=== PATIENT | male | born 1950 | race African-American/Black ===

== ENCOUNTER 2017-08-05 09:42 | Emergency (ER) | payer MEDICARE, OTHER ==
[~2017-08-05] VITALS: Ht 182.9 cm; Wt 95.5 kg
[~2017-08-05 09:42] MED LIST: AMLO-511 PO; ASPI81TA33 PO; ATOR20TA65 PO; HYDR25TA PO; LISI10TA7 PO
[2017-08-05 10:04] VITALS: BP 133/92
== END 2017-08-05 11:07 | disposition home or self-care (01) ==
LOC: EMS 09:44
DX: L50.9 Urticaria, unspecified (principal); E78.00 Pure hypercholesterolemia, unspecified; I10 Essential (primary) hypertension; Z79.82 Long term (current) use of aspirin; Z87.891 Personal history of nicotine dependence
CPT/HCPCS: 99283

== ENCOUNTER 2017-12-29 11:52 | Emergency (ER) | payer MEDICARE, OTHER ==
[~2017-12-29] VITALS: Ht 182.9 cm; Wt 93.2 kg
[~2017-12-29 11:52] MED LIST changes: -ASPI81TA33 PO; +ASPI81TA87 PO
[2017-12-29 11:58] VITALS: BP 133/92
== END 2017-12-29 12:48 | disposition left against medical advice (07) ==
LOC: EMS 11:58
DX: Z53.21 Procedure and treatment not carried out due to patient leaving prior to being seen by health care provider (principal)

== ENCOUNTER 2017-12-30 10:50 | Emergency (ER) | payer MEDICARE, OTHER | END 2017-12-30 12:09 | disposition left against medical advice (07) | LOC: EMS 10:54 | DX: R05 Cough (principal); Z53.21 Procedure and treatment not carried out due to patient leaving prior to being seen by health care provider ==

== ENCOUNTER 2018-12-11 07:46 | Emergency (ER) | payer MEDICARE, OTHER ==
[~2018-12-11] VITALS: Ht 182.9 cm; Wt 93.2 kg
[2018-12-11] MEDS ORDERED: BENZONATATE 100 MG CAPSULE PO ONE (09:45)
[2018-12-11 10:08] VITALS: BP 146/106
== END 2018-12-11 10:18 | disposition home or self-care (01) ==
LOC: EMS 07:49
DX: R05 Cough (principal); E78.00 Pure hypercholesterolemia, unspecified; I10 Essential (primary) hypertension; F17.210 Nicotine dependence, cigarettes, uncomplicated; Z79.899 Other long term (current) drug therapy; Z79.82 Long term (current) use of aspirin; Z98.890 Other specified postprocedural states
CPT/HCPCS: 99406

== ENCOUNTER 2019-10-17 13:59 | Emergency (ER) | payer MEDICARE, OTHER ==
[~2019-10-17] VITALS: Ht 182.9 cm; Wt 91.4 kg
[~2019-10-17 13:59] MED LIST changes: -AMLO-511 PO; +AMLO5TAB9 PO; +HYDR-1475 PO; -HYDR25TA PO
[2019-10-17] MEDS ORDERED: ASPIRIN 81 MG CHEWABLE TABLET PO ONE (14:45)
[2019-10-17 15:12] LABS: BASOPHILS % (AUTO) 0.8 % (0.0-2.0); EOSINOPHILS % (AUTO) 7.4 % (1.0-6.0); HEMOGLOBIN 14.1 g/dL (13.5-17.5); LYMPHOCYTES % (AUTO) 28.4 % (22.0-44.0); MEAN CORPUSCULAR HEMOGLOBIN 29.1 pg (26.0-34.0); MEAN CORPUSCULAR HGB CONC 33.5 G/dL (31.0-37.0); MEAN CORPUSCULAR VOLUME 87 fL (80-100); MONOCYTES # (AUTO) 0.3 K/uL (0.1-1.0); MONOCYTES % (AUTO) 9.7 % (2.0-9.0); NEUTROPHILS # (AUTO) 1.9 K/uL (1.8-7.7); NEUTROPHILS % (AUTO) 53.7 % (40.0-70.0); PLATELET COUNT (AUTO) 200 K/uL (150-450); RED BLOOD CELL COUNT(AUTO) 4.84 MIL/uL (4.50-5.90); RED CELL DISTRIBUTION WIDTH 13.6 % (11.5-14.5)
[2019-10-17 15:22] LABS: ANION GAP 8 mmol/L (8-16); CARBON DIOXIDE 31 mmol/L (22-29); CHLORIDE 105 mmol/L (98-107); CREATININE 1.18 mg/dL (0.60-1.30); GLOMERULAR FILTR. RATE CALC > 60 mL/min (>60); GLUCOSE,RANDOM 101 mg/dL (70-110); POTASSIUM 3.3 mmol/L (3.5-5.1); SODIUM SERUM 144 mmol/L (136-145); UREA NITROGEN, BLOOD 15 mg/dL (7-18)
[2019-10-17 15:26] LABS: INR 1.1 (0.9-1.1); PROTHROMBIN TIME 10.9 SEC (9.4-11.6)
[2019-10-17 15:34] LABS: B-TYPE NATRIURETIC PEPTIDE 46 pg/mL (0-100)
[2019-10-17] MEDS ORDERED: POTASSIUM CHLORIDE 20 MEQ ER TABLET PO ONE (15:45)
[2019-10-17 15:47] LABS: ALANINE AMINOTRANSFERASE 25 U/L (12-78); ALKALINE PHOSPHATASE 74 U/L (46-116); ASPARTATE AMINOTRANSFERASE 18 U/L (15-37); BILIRUBIN,TOTAL 0.3 mg/dL (0.1-1.0); CREATINE KINASE, TOTAL ONLY 162 U/L (39-308); TOTAL PROTEIN, SERUM 8.5 g/dL (6.4-8.2)
[2019-10-17 15:55] LABS: CALCIUM, TOTAL 9.3 mg/dL (8.8-10.5)
[2019-10-17 16:16] VITALS: BP 138/87
== END 2019-10-17 16:18 | disposition home or self-care (01) ==
LOC: EMS 14:00
DX: R07.9 Chest pain, unspecified (principal); I10 Essential (primary) hypertension; E78.00 Pure hypercholesterolemia, unspecified; F17.210 Nicotine dependence, cigarettes, uncomplicated; Z79.899 Other long term (current) drug therapy
CPT/HCPCS: 93005

== ENCOUNTER → 2019-10-24 | Emergency (ER) | payer MEDICARE, OTHER ==
[~2019-10-24] VITALS: Ht 182.9 cm; Wt 91.4 kg
[2019-10-25 00:13] VITALS: BP 140/102
== END | disposition home or self-care (01) ==
LOC: EMS 23:41
DX: R51 Headache (principal); Z53.21 Procedure and treatment not carried out due to patient leaving prior to being seen by health care provider

== ENCOUNTER 2021-02-15 10:07 | Emergency (ER) | payer MEDICARE, OTHER ==
[~2021-02-15] VITALS: Ht 182.9 cm; Wt 95.5 kg
[~2021-02-15 10:07] MED LIST changes: +AMLO-257 PO; -AMLO5TAB9 PO; -HYDR-1475 PO; +HYDR25TA2 PO; +LISI10TA24 PO; -LISI10TA7 PO
[2021-02-15 10:23] VITALS: BP 144/82
== END 2021-02-15 13:38 | disposition left against medical advice (07) ==
LOC: EMS 10:07
DX: M79.89 Other specified soft tissue disorders (principal); Z53.21 Procedure and treatment not carried out due to patient leaving prior to being seen by health care provider